=== PATIENT | male | born 1960 | race Caucasian/White ===

== ENCOUNTER 2016-11-05 00:53 | Emergency (ER) | payer MEDICAID ==
[2016-11-05] MEDS ORDERED: DEXAMETHASONE 4 MG TABLET ONE (01:49)
[2016-11-05] MEDS ORDERED: ALBUTEROL/IPRATROPIUM 2.5MG/0.5MG, 3 ML ONE (01:55)
== END 2016-11-05 02:10 | disposition home or self-care (01) ==
LOC: ED 00:53
DX: J06.9 Acute upper respiratory infection, unspecified (principal); J45.901 Unspecified asthma with (acute) exacerbation; G89.29 Other chronic pain; R10.84 Generalized abdominal pain
CPT/HCPCS: 93005; 99283

== ENCOUNTER 2016-11-08 09:42 | Emergency (ER) | payer MEDICAID ==
[~2016-11-08] VITALS: Ht 188 cm; Wt 81.5 kg
[2016-11-08] MEDS ORDERED: ZIPRASIDONE 20 MG INJ IM ONE ×2 (10:29→10:30)
[2016-11-08 10:57] LABS: BLOOD UREA NITROGEN 10 mg/dL (7-18)
[2016-11-08 10:58] LABS: ASPARTATE AMINO TRANSFERASE 71 U/L (15-37)
[2016-11-08 12:13] VITALS: BP 131/80
== END 2016-11-08 12:34 | disposition home or self-care (01) ==
LOC: ED 10:09
DX: Z76.0 Encounter for issue of repeat prescription (principal); F10.150 Alcohol abuse with alcohol-induced psychotic disorder with delusions; F17.210 Nicotine dependence, cigarettes, uncomplicated; J45.909 Unspecified asthma, uncomplicated
CPT/HCPCS: 36415; 80053; 84484; 93005; 96372; 99285; J3486